=== PATIENT | female | born 1990 | race African-American/Black ===

== ENCOUNTER 2017-10-09 16:56 | Emergency (ER) | payer SELFPAY ==
[2017-10-09 17:02] VITALS: BP 95/74
--- NOTE | 2017-10-09 17:36 | ER Document Report ---
HPI - HPI Pain Level: 3 Notes: Patient is a 27-year-old female no significant past medical history presents the ED complaining of nasal congestion/discharge, dry nonproductive cough 1-1/ 2 weeks. Patient states she still eating and drinking without difficulties. She has not been using any [id number] meds for her symptoms. Patient states that her parents had a similar illness prior to the start hers. She denies any smoking or IV drug use. She denies any drug allergies. Denies any headache, fever, neck pain, sore throat, chest pain, palpitations, syncope, shortness of breath, wheeze, dyspnea, abdominal pain, nausea/vomiting/diarrhea, urinary retention, dysuria, hematuria, or rash. - ROS Notes: REVIEW OF SYSTEMS: CONSTITUTIONAL : Denies fever, chills, or sweats. Denies recent illness. EENT: see hpi CARDIOVASCULAR: Denies chest pain. Denies palpitations or racing or irregular heart beat. Denies ankle edema. RESPIRATORY: see hpi. Denies shortness of breath, difficulty breathing, or wheezing. GASTROINTESTINAL: Denies abdominal pain or distention. Denies nausea, vomiting , or diarrhea. Denies blood in vomitus, stools, or per rectum. Denies black, tarry stools. Denies constipation. GENITOURINARY: Denies difficulty urinating, painful urination, burning, frequency, blood in urine, or discharge. MUSCULOSKELETAL: Denies back or neck pain or stiffness. Denies joint pain or swelling. SKIN: Denies rash, lesions or sores. NEUROLOGICAL: Denies dizziness or lightheadedness. Denies headache. Denies weakness or paralysis or loss of use of either side. Denies problems with gait or speech. Denies sensory loss, numbness, or tingling. Denies seizures. ALL OTHER SYSTEMS REVIEWED AND NEGATIVE. Dictation was performed using [employer] voice recognition software - REPRODUCTIVE Reproductive: DENIES: : Past Medical History - Social History Smoking Status: Never Smoker Family History: Reviewed & Not Pertinent Endocrine Medical History: Denies: Hx Diabetes Mellitus Type 1, Hx Diabetes Mellitus Type 2 - Immunizations Hx Diphtheria, Pertussis, Tetanus Vaccination: Yes Vertical Provider Document - CONSTITUTIONAL Agree With Documented VS: Yes Notes: PHYSICAL EXAMINATION: GENERAL: Well-appearing, well-nourished and in no acute distress. A&Ox4 HEAD: Atraumatic, normocephalic. EYES: Pupils equal round and reactive to light, extraocular movements intact, sclera anicteric, conjunctiva are normal. ENT: EAC clear b/l. TM's intact b/l without erythema, fluid, or perforation. Nares patent and without discharge. oropharynx clear without exudates. No tonsilar hypertrophy or erythema. Moist mucous membranes. No sinus tenderness. Uvula midline, no palatine shift. No tongue protrusion. No airway compromise, drooling, or hoarseness. NECK: Normal range of motion, supple without lymphadenopathy. No rigidity/ meningismus. LUNGS: Breath sounds clear to auscultation bilaterally and equal. No wheezes rales or rhonchi. HEART: Regular rate and rhythm without murmurs, rubs, gallops. ABDOMEN: Soft, nontender, nondistended abdomen. No guarding, no rebound. No masses appreciated. Normal bowel sounds present. No CVA tenderness bilaterally. Musculoskeletal: FROM to passive/active. Strength 5+/5. + tenderness to the rt troch bursa. No erythema, swelling, or ecchymosis. N/V intact distal. Extremities: No cyanosis, clubbing, or edema b/l. Peripheral pulses 2+. Capillary refill less than 3 seconds. NEUROLOGICAL: Cranial nerves grossly intact. Normal speech, normal gait. Normal sensory, motor exams PSYCH: Normal mood, normal affect. SKIN: Warm, Dry, normal turgor, no rashes or lesions noted. - INFECTION CONTROL TRAVEL OUTSIDE OF THE [place] IN LAST 30 DAYS: No - RESPIRATORY O2 Sat by Pulse Oximetry: 98 Course - Re-evaluation Re-evalutation: 10/09/17 17:33 Patient is an afebrile, well-hydrated, 27-year-old female who presents to the ED with acute URI, suspect viral at this time as well as rt troch bursitis and back strain. Vitals are stable. PE is otherwise unremarkable. No labs or imaging warranted based on H&P today. Low suspicion for any ACS, PE, pneumothorax, pericarditis, dissection, respiratory compromise, severe dehydration, sepsis, meningitis, fracture, expanding/ruptured AAA, cauda equina syndrome, epidural mass lesion/abscess, herniated disc causing severe spinal stenosis, or other systemic emergent condition at this time. Patient is aware that her condition can change from initial presentation and she needs to monitor symptoms closely and seek medical attention for any acute changes. Patient declined Toradol. I will send her home with a pocket prescription of Zithromax that she may begin if ongoing worsening symptoms 2-3 days. Recommend conservative measures for symptoms. Recheck with your PCM in 3-5 days. Return to the ED with any worsening/concerning symptoms otherwise as reviewed in discharge. Patient is in agreement. - Vital Signs Vital signs: Temp Pulse Resp BP Pulse Ox 98.8 F 84 14 95/74 L 98 10/09/17 17:02 10/09/17 17:02 10/09/17 17:02 10/09/17 17:02 10/09/17 17:02 Discharge - Discharge Clinical Impression: Acute URI, Trochanteric bursitis, right hip Low back strain Qualifiers: Encounter type: initial encounter Qualified Code(s): S39.012A - Strain of muscle, fascia and tendon of lower back, initial encounter Condition: Stable Disposition: HOME, SELF-CARE Instructions: Ice Packs ([facility]), Low Back Pain ([facility]), Stretching Exercises for the Back ([facility]), Upper Respiratory Illness ([facility]), Azithromycin ([facility]) Additional Instructions: Maintain adequate fluid intake Take meds as directed tylenol/ibuprofen as needed over the counter cold medication as needed for symptoms Humidified air may help with cough Rest, ice as needed, stretches, and exercise F/u: with your PCM in 3-5 days for a recheck Return to the ED with any fever, worsening pain, chest pain, palpitations, syncope, worsening CANDELARIA, neck pain/stiffness, shortness of breath, wheezing, drooling, trouble swallowing/breathing, abdominal pain, n/v/d, rash, or worsening/concerning symptoms otherwise. Prescriptions: Azithromycin [Zithromax 250 mg Tablet] 250 mg PO ASDIR PRN #6 tablet PRN Reason: Forms: Return to Work Referrals: [facility] [Provider Group] - Follow up as needed [facility] [Provider Group] - Follow up as needed
== END 2017-10-09 17:40 | disposition home or self-care (01) ==
LOC: ER 16:56
DX: S39.012A Strain of muscle, fascia and tendon of lower back, initial encounter (principal); J06.9 Acute upper respiratory infection, unspecified; M70.61 Trochanteric bursitis, right hip; R09.81 Nasal congestion; R05 Cough; X58.XXXA Exposure to other specified factors, initial encounter
CPT/HCPCS: 99283

== ENCOUNTER 2017-10-16 07:15 | Emergency (ER) | payer OTHER ==
--- NOTE | 2017-10-16 08:12 | ER Document Report ---
ED General - General Chief Complaint: Back Pain Stated Complaint: BACK PAIN Time Seen by Provider: 10/16/17 07:26 Mode of Arrival: Ambulatory Information source: Patient Notes: 27-year-old female presents with complaints of back pain of one-week duration. Patient notes she was seen here diagnosed with a low back strain and now has generalized back pain. 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 Patient notes the pain has worsened but she has not been taking alleve the way she is supposed to TRAVEL OUTSIDE OF THE [place] IN LAST 30 DAYS: No - HPI Onset: Last week Onset/Duration: Worse Quality of pain: Achy Severity: Mild Pain Level: 1 Associated symptoms: Body/muscle aches Exacerbated by: Movement Relieved by: Denies Similar symptoms previously: Yes Recently seen / treated by doctor: Yes - Related Data Allergies/Adverse Reactions: No Known Allergies Allergy (Verified 10/16/17 07:15) Past Medical History - Social History Smoking Status: Never Smoker Cigarette use (# per day): No Chew tobacco use (# tins/day): No Smoking Education Provided: No Frequency of alcohol use: None Drug Abuse: None Family History: Reviewed & Not Pertinent Patient has suicidal ideation: No Patient has homicidal ideation: No Endocrine Medical History: Denies: Hx Diabetes Mellitus Type 1, Hx Diabetes Mellitus Type 2 Renal/ Medical History: Denies: Hx Peritoneal Dialysis Musculoskeltal Medical History: Reports Hx Arthritis - right hip - Immunizations Hx Diphtheria, Pertussis, Tetanus Vaccination: Yes Review of Systems - Review of Systems Notes: REVIEW OF SYSTEMS: CONSTITUTIONAL : Denies fever, chills, or sweats. Denies recent illness. EENT: Denies eye, ear, throat, or mouth pain or symptoms. Denies nasal or sinus congestion or discharge. Denies throat, tongue, or mouth swelling or difficulty swallowing. CARDIOVASCULAR: Denies chest pain. Denies palpitations or racing or irregular heart beat. Denies ankle edema. RESPIRATORY: Denies cough, cold, or chest congestion. Denies shortness of breath, difficulty breathing, or wheezing. GASTROINTESTINAL: Denies abdominal pain or distention. Denies nausea, vomiting , or diarrhea. Denies blood in vomitus, stools, or per rectum. Denies black, tarry stools. Denies constipation. GENITOURINARY: Denies difficulty urinating, painful urination, burning, frequency, blood in urine, or discharge. FEMALE GENITOURINARY: Denies vaginal bleeding, heavy or abnormal periods, irregular periods. Denies vaginal discharge or odor. MUSCULOSKELETAL: admits to muscle aches SKIN: Denies rash, lesions or sores. HEMATOLOGIC : Denies easy bruising or bleeding. LYMPHATIC: Denies swollen, enlarged glands. NEUROLOGICAL: Denies confusion or altered mental status. Denies passing out or loss of consciousness. Denies dizziness or lightheadedness. Denies headache. Denies weakness or paralysis or loss of use of either side. Denies problems with gait or speech. Denies sensory loss, numbness, or tingling. Denies seizures. PSYCHIATRIC: Denies anxiety or stress. Denies depression, suicidal ideation, or homicidal ideation. ALL OTHER SYSTEMS REVIEWED AND NEGATIVE. PHYSICAL EXAMINATION: GENERAL: Well-appearing, well-nourished and in no acute distress. HEAD: Atraumatic, normocephalic. EYES: Pupils equal round and reactive to light, extraocular movements intact, conjunctiva are normal. ENT: Nares patent, oropharynx clear without exudates. Moist mucous membranes. NECK: Normal range of motion, supple without lymphadenopathy LUNGS: Breath sounds clear to auscultation bilaterally and equal. No wheezes rales or rhonchi. HEART: Regular rate and rhythm without murmurs ABDOMEN: Soft, nontender, nondistended abdomen. No guarding, no rebound. No masses appreciated. Female : deferred Musculoskeletal: Normal range of motion, no pitting or edema. No cyanosis. generalized tenderness on palpation NEUROLOGICAL: Cranial nerves grossly intact. Normal speech, normal gait. Normal sensory, motor exams PSYCH: Normal mood, normal affect. SKIN: Warm, Dry, normal turgor, no rashes or lesions noted. Dictation was performed using [employer] voice recognition software Physical Exam - Vital signs Vitals: Temp Pulse Resp BP Pulse Ox 97.6 F 73 16 111/75 100 10/16/17 07:19 10/16/17 07:19 10/16/17 07:19 10/16/17 07:19 10/16/17 07:19 Course - Re-evaluation Re-evalutation: 10/16/17 17:10 Patient's presentation is consistent with muscle pain secondary to heavy lifting. She has not been bony tenderness she has no neurological deficits she has no cauda equina concerns. Therefore I believe the patient is stable for discharge. Patient will be treated with steroids and muscle relaxant After performing a Medical Screening Examination, I estimate there is LOW risk for EXPANDING OR RUPTURED ABDOMINAL AORTIC ANEURYSM, CAUDA EQUINA SYNDROME, EPIDURAL MASS LESION, or HERNIATED DISK CAUSING SEVERE SPINAL STENOSIS, thus I consider the discharge disposition reasonable. I have reevaluated this patient multiple times and no significant life threatening changes are noted. The patient and I have discussed the diagnosis and risks, and we agree with discharging home and close follow-up. We also discussed returning to the Emergency Department immediately if new or worsening symptoms occur with the understanding that symptoms and presentations can change. We have discussed the symptoms which are most concerning (e.g., saddle anesthesia, urinary or bowel incontinence or retention, changing or worsening pain) that necessitate immediate return. - Vital Signs Vital signs: Temp Pulse Resp BP Pulse Ox 98.2 F 86 18 111/83 99 10/16/17 08:16 10/16/17 08:16 10/16/17 08:16 10/16/17 08:16 10/16/17 08:16 Discharge - Discharge Clinical Impression: Low back strain Qualifiers: Encounter type: subsequent encounter Qualified Code(s): S39.012D - Strain of muscle, fascia and tendon of lower back, subsequent encounter Condition: Stable Disposition: HOME, SELF-CARE Instructions: Low Back Pain ([facility]), Muscle Strain ([facility]) Additional Instructions: Please allow for limited lifting at work no greater than 20 pounds for 2 weeks Prescriptions: Cyclobenzaprine HCl [Flexeril 10 mg Tablet] 10 mg PO TIDP PRN #15 tab PRN Reason: Prednisone [Deltasone 20 mg Tablet] 3 tab PO DAILY 5 Days tablet Forms: Return to Work
[2017-10-16 08:40] VITALS: BP 111/83
== END 2017-10-16 08:20 | disposition home or self-care (01) ==
LOC: ER 07:15
DX: S39.012D Strain of muscle, fascia and tendon of lower back, subsequent encounter (principal); M54.9 Dorsalgia, unspecified; X58.XXXD Exposure to other specified factors, subsequent encounter
CPT/HCPCS: 99283

== ENCOUNTER 2017-12-18 06:20 | Emergency (ER) | payer OTHER ==
[2017-12-18 07:12] LABS: A TYPE INFLUENZA AG NEGATIVE (NEGATIVE); B INFLUENZA AG NEGATIVE (NEGATIVE)
--- NOTE | 2017-12-18 07:18 | ER Document Report ---
ED Flu Like - General Chief Complaint: Flu Symptoms Stated Complaint: FLU LIKE SYMPTOMS Time Seen by Provider: 12/18/17 06:39 Notes: Patient complains of a viral-like illness for the last week. States that she started feeling sick with fever on Thursday of last week. Continues to have fever on and off. Irritation of both eyes, ear pain, sore throat, cough, shortness of breath. 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 Is scheduled to work for the next several days. TRAVEL OUTSIDE OF THE [place] IN LAST 30 DAYS: No - HPI Onset: Last week Timing/Duration: Constant Severity: Moderate Pain Level: 2 Shortness of breath: Moderate Associated symptoms: Productive cough, Earache, Fever, Headache, Hoarseness, Shortness of breath, Sore throat - Related Data Allergies/Adverse Reactions: No Known Allergies Allergy (Verified 10/16/17 07:15) Past Medical History - General Information source: Patient - Social History Smoking Status: Never Smoker Chew tobacco use (# tins/day): No Frequency of alcohol use: None Drug Abuse: None Lives with: Family Family History: Reviewed & Not Pertinent Patient has suicidal ideation: No Patient has homicidal ideation: No Endocrine Medical History: Denies: Hx Diabetes Mellitus Type 1, Hx Diabetes Mellitus Type 2 Renal/ Medical History: Denies: Hx Peritoneal Dialysis Musculoskeltal Medical History: Reports Hx Arthritis - right hip - Immunizations Hx Diphtheria, Pertussis, Tetanus Vaccination: Yes Review of Systems - Review of Systems Constitutional: Chills, Fever, Malaise. denies: Diaphoresis EENT: Eye discharge, Tearing, Ear pain, Nose congestion, Nose discharge, Throat pain. denies: Throat swelling, Mouth pain Cardiovascular: denies: Chest pain, Palpitations, Heart racing Respiratory: Cough, Short of breath, Wheezing Gastrointestinal: denies: Abdominal pain, Diarrhea, Nausea Genitourinary: denies: Burning, Dysuria, Discharge Musculoskeletal: Muscle pain. denies: Back pain, Gout, Joint pain Skin: denies: Lesions, Lumps, Rash Hematologic/Lymphatic: denies: Anemia, Blood clots, Easy bleeding, Easy bruising Neurological/Psychological: denies: Dementia, Weakness, Numbness Physical Exam - Vital signs Vitals: Temp Pulse Resp BP Pulse Ox 98.2 F 83 18 116/82 98 12/18/17 06:24 12/18/17 06:24 12/18/17 06:24 12/18/17 06:24 12/18/17 06:24 Interpretation: Normal - General General appearance: Appears well, Alert - HEENT Head: Normocephalic, Atraumatic Eyes: Normal Conjunctiva: Other - Mildly injected in the left eye. No purulent discharge noted. Pupils: PERRL Tympanic membrane: Normal Pharynx: Normal Neck: Normal - Respiratory Respiratory status: No respiratory distress Chest status: Nontender Breath sounds: Normal Chest palpation: Normal - Cardiovascular Rhythm: Regular Heart sounds: Normal auscultation Murmur: No - Abdominal Inspection: Normal Distension: No distension Bowel sounds: Normal Tenderness: Nontender Organomegaly: No organomegaly - Back Back: Normal, Nontender - Extremities General upper extremity: Normal inspection, Nontender, Normal color, Normal ROM , Normal temperature General lower extremity: Normal inspection, Nontender, Normal color, Normal ROM , Normal temperature, Normal weight bearing. No: Roselia's sign - Neurological Neuro grossly intact: Yes Cognition: Normal Orientation: AAOx4 [place] Coma Scale Eye Opening: Spontaneous [place] Coma Scale Verbal: Oriented [place] Coma Scale Motor: Obeys Commands [place] Coma Scale Total: 15 Speech: Normal Motor strength normal: LUE, RUE, LLE, RLE Sensory: Normal - Psychological Associated symptoms: Normal affect, Normal mood - Skin Skin Temperature: Warm Skin Moisture: Dry Skin Color: Normal Course - Re-evaluation Re-evalutation: 12/18/17 07:31 Patient has been having viral-like symptoms for approximately 1 week. Influenza testing was negative. I have advised her to continue with symptomatic care. Will prescribe her an inhaler at this time which may help with some of her breathing issues. Will DC at this time. Strict instructions were given that she should return if anything gets worse. - Vital Signs Vital signs: Temp Pulse Resp BP Pulse Ox 98.2 F 83 18 116/82 98 12/18/17 06:24 12/18/17 06:24 12/18/17 06:24 12/18/17 06:24 12/18/17 06:24 Discharge - Discharge Clinical Impression: Viral syndrome Disposition: HOME, SELF-CARE Instructions: Acetaminophen, Fever ([facility]), Viral Syndrome ([facility]) Prescriptions: Albuterol Sulfate [Proair HFA Inhalation Aerosol 8.5 gm MDI] 2 puff IH Q4H PRN # 1 mdi PRN Reason: Forms: Return to Work
[2017-12-18 08:05] VITALS: BP 110/81
== END 2017-12-18 08:05 | disposition home or self-care (01) ==
LOC: ER 06:20
DX: B34.9 Viral infection, unspecified (principal); R50.9 Fever, unspecified; H92.09 Otalgia, unspecified ear; J02.9 Acute pharyngitis, unspecified; R05 Cough; R06.02 Shortness of breath; R51 Headache; R49.0 Dysphonia
CPT/HCPCS: 87804; 99283

== ENCOUNTER 2017-12-25 06:08 | Emergency (ER) | payer SELFPAY ==
[2017-12-25] MEDS ORDERED: DEXAMETHASONE SOD PHOS INJ 10 MG/1 ML VIAL IM ONE (07:09)
--- NOTE | 2017-12-25 08:06 | ER Document Report ---
ED General - General Chief Complaint: Ear Pain Stated Complaint: SORE THROAT Time Seen by Provider: 12/25/17 06:42 Mode of Arrival: Ambulatory Information source: Patient TRAVEL OUTSIDE OF THE [place] IN LAST 30 DAYS: No - HPI Patient complains to provider of: sore throat Onset: Last week Onset/Duration: Gradual, Constant Associated symptoms: Earache - b/l Exacerbated by: Denies Relieved by: Denies Similar symptoms previously: Yes Recently seen / treated by doctor: Yes - last week dxed with flu Notes: She states she was diagnosed with the flu last week. She did not have a test but clinically she was diagnosed with it. She states right now her ears hurt and she has a sore throat. She is tolerating p.o. She was supposed to go to work today but just did not feel well enough. No nausea vomiting diarrhea fever shortness of breath headache syncope or other complaints - Related Data Allergies/Adverse Reactions: No Known Allergies Allergy (Verified 10/16/17 07:15) Past Medical History - General Information source: Patient - Social History Smoking Status: Unknown if Ever Smoked Chew tobacco use (# tins/day): No Frequency of alcohol use: None Drug Abuse: None Lives with: Family Family History: Reviewed & Not Pertinent Patient has suicidal ideation: No Patient has homicidal ideation: No - Past Medical History Cardiac Medical History: Reports: None Pulmonary Medical History: Reports: None EENT Medical History: Reports: None Neurological Medical History: Reports: None Endocrine Medical History: Reports: None. Denies: Hx Diabetes Mellitus Type 1, Hx Diabetes Mellitus Type 2 Renal/ Medical History: Reports: None. Denies: Hx Peritoneal Dialysis Malignancy Medical History: Reports: None GI Medical History: Reports: None Musculoskeltal Medical History: Reports Hx Arthritis - right hip Psychiatric Medical History: Reports: None Past Surgical History: Reports: None - Immunizations Hx Diphtheria, Pertussis, Tetanus Vaccination: Yes Review of Systems - Review of Systems Constitutional: Recent illness EENT: Ear pain, Throat pain, Difficulty swallowing. denies: Ear discharge Cardiovascular: No symptoms reported Respiratory: No symptoms reported Gastrointestinal: No symptoms reported Genitourinary: No symptoms reported Female Genitourinary: No symptoms reported Musculoskeletal: No symptoms reported Skin: No symptoms reported Hematologic/Lymphatic: No symptoms reported Neurological/Psychological: No symptoms reported Physical Exam - Vital signs Vitals: Temp Pulse Resp BP Pulse Ox 97.7 F 72 16 124/89 H 99 18 06:18 12/25/17 06:18 12/25/17 06:18 12/25/17 06:18 12/25/17 06:18 Interpretation: Normal - Notes Notes: PHYSICAL EXAMINATION: GENERAL: Well-appearing, well-nourished and in no acute distress. HEAD: Atraumatic, normocephalic. EYES: Pupils equal round and reactive to light, extraocular movements intact, conjunctiva are normal. ENT: Nares patent, oropharynx clear without exudates. Moist mucous membranes. Fluid behind b/l TMs-structures WNL. No bulging of TMs. Uvula mildly edematous- midline. No tonsillar enlargement or exudate. pt. tolerating saliva. NECK: Normal range of motion, supple without lymphadenopathy LUNGS: Breath sounds clear to auscultation bilaterally and equal. No wheezes rales or rhonchi. HEART: Regular rate and rhythm without murmurs ABDOMEN: Soft, nontender, nondistended abdomen. No guarding, no rebound. No masses appreciated. Female : deferred Musculoskeletal: Normal range of motion, no pitting or edema. No cyanosis. NEUROLOGICAL: Cranial nerves grossly intact. Normal speech, normal gait. Normal sensory, motor exams PSYCH: Normal mood, normal affect. SKIN: Warm, Dry, normal turgor, no rashes or lesions noted. Course - Re-evaluation Re-evalutation: 12/25/17 08:16 Lacey with patient that at this point I did not feel antibiotics were needed or would help the patient. It appears she has a viral pharyngitis. I did tell the patient to give her a work note for a few days to rest at home. Patient verbalized understanding. She is to return to the emergency department if she has fevers, intractable vomiting, worsening symptoms or any other concerns. Patient verbalized understanding she was discharged home in stable condition. - Vital Signs Vital signs: Temp Pulse Resp BP Pulse Ox 97.7 F 72 16 124/89 H 99 18 06:18 12/25/17 06:18 12/25/17 06:18 12/25/17 06:18 12/25/17 06:18 Discharge - Discharge Clinical Impression: Viral pharyngitis Condition: Stable Disposition: HOME, SELF-CARE Instructions: Sore Throat ([facility]) Additional Instructions: Follow up with your physician tomorrow for further care or return to the ED IMMEDIATELY if symptoms worsen or new concerns occur. If you cannot afford to follow up with your primary care physician a list of low cost clinics have been provided at the end of your discharge papers as well. Forms: Return to Work
[2017-12-25 08:13] VITALS: BP 111/79
== END 2017-12-25 08:13 | disposition home or self-care (01) ==
LOC: ER 06:08
DX: J02.9 Acute pharyngitis, unspecified (principal); B97.89 Other viral agents as the cause of diseases classified elsewhere; H92.03 Otalgia, bilateral
CPT/HCPCS: 99282; 96372; J1100

== ENCOUNTER 2018-07-07 08:14 | Emergency (ER) | payer BC ==
[2018-07-07] MEDS ORDERED: NORMAL SALINE 1000 ML 1,000 ML IV ONE (09:19)
[2018-07-07] MEDS ORDERED: METOCLOPRAMIDE HCL INJ/PF 10 MG/2 ML SDV IV ONE (09:20)
[2018-07-07] MEDS ORDERED: ACETAMINOPHEN 325 MG TABLET PO ONE (09:20)
--- NOTE | 2018-07-07 09:22 | ER Document Report ---
ED Medical Screen (RME) - General Chief Complaint: Headache >24 hrs old Stated Complaint: HEADACHE Time Seen by Provider: 07/07/18 09:04 Mode of Arrival: Ambulatory Information source: Patient Notes: Patient complaining of headache for the past 1 month. She denies any history of migraine headaches. Patient also denies any history of head injury or trauma. I have greeted and performed a rapid initial assessment of this patient. A comprehensive ED assessment and evaluation of the patient, analysis of test results and completion of the medical decision making process will be conducted by additional ED providers. TRAVEL OUTSIDE OF THE [place] IN LAST 30 DAYS: No - Related Data Allergies/Adverse Reactions: No Known Allergies Allergy (Verified 10/16/17 07:15) Past Medical History - Social History Chew tobacco use (# tins/day): No Frequency of alcohol use: None Drug Abuse: None Endocrine Medical History: Denies: Hx Diabetes Mellitus Type 1, Hx Diabetes Mellitus Type 2 Renal/ Medical History: Denies: Hx Peritoneal Dialysis Musculoskeltal Medical History: Reports Hx Arthritis - right hip - Immunizations Hx Diphtheria, Pertussis, Tetanus Vaccination: Yes Physical Exam - Vital signs Vitals: Temp Pulse Resp BP Pulse Ox 97.6 F 74 16 119/75 98 07/07/18 08:23 07/07/18 08:23 07/07/18 08:23 07/07/18 08:23 07/07/18 08:23 Course - Vital Signs Vital signs: Temp Pulse Resp BP Pulse Ox 97.6 F 74 16 119/75 98 07/07/18 08:23 07/07/18 08:23 07/07/18 08:23 07/07/18 08:23 07/07/18 08:23
[2018-07-07 09:50] LABS: ABSOLUTE BASOPHILS # (AUTO) 0.1 10^3/uL (0.0-0.2); ABSOLUTE EOSINOPHILS # (AUTO) 0.1 10^3/uL (0.0-0.6); ABSOLUTE LYMPHOCYTES (AUTO) 2.6 10^3/uL (0.5-4.7); ABSOLUTE MONOCYTES (AUTO) 0.5 10^3/uL (0.1-1.4); ABSOLUTE NEUT (AUTO) 5.9 10^3/uL (1.7-8.2); BASOPHILS % (AUTO) 0.7 % (0-2); EOSINOPHILS % (AUTO) 0.9 % (0-6); HEMATOCRIT 44.4 % (36.0-47.0); HEMOGLOBIN 14.5 g/dL (12.0-15.5); LYMPHOCYTES % (AUTO) 28.6 % (13-45); MEAN CORPUSCULAR HEMOGLOBIN 27.1 pg (27.0-33.4); MEAN CORPUSCULAR HGB CONC 32.7 g/dL (32.0-36.0); MEAN CORPUSCULAR VOLUME 83 fl (80-97); PLATELET COUNT 312 10^3/uL (150-450); RED BLOOD COUNT 5.36 10^6/uL (3.72-5.28); RED CELL DISTRIBUTION WIDTH 14.8 % (11.5-14.0); SEGMENTED NEUTROPHILS % (AUTO) 63.8 % (42-78); TOTAL CELLS COUNTED % (AUTO) 100 %; WHITE BLOOD COUNT 9.2 10^3/uL (4.0-10.5)
[2018-07-07 09:53] LABS: APPEARANCE,URINE SLIGHTLY-CLOUDY; BILIRUBIN,URINE NEGATIVE (NEGATIVE); COLOR,URINE YELLOW; GLUCOSE, URINE NEGATIVE (NEGATIVE); KETONES,URINE NEGATIVE (NEGATIVE); LEUKOCYTE ESTERASE,URINE MODERATE (NEGATIVE); NITRITE,URINE NEGATIVE (NEGATIVE); PROTEIN,URINE NEGATIVE (NEGATIVE); PROTHROMBIN TIME 12.6 SEC (11.4-15.4); URINE SPECIFIC GRAVITY 1.031
[2018-07-07 09:54] LABS: PARTIAL THROMBOPLASTIN TIME 33.5 SEC (23.5-35.8)
[2018-07-07 10:08] LABS: ANION GAP 7 (5-19); BLOOD UREA NITROGEN 14 mg/dL (7-20); CALCIUM 9.5 mg/dL (8.4-10.2); CARBON DIOXIDE 28 mmol/L (22-30); CHLORIDE 106 mmol/L (98-107); GLUCOSE 87 mg/dL (75-110); POTASSIUM 4.4 mmol/L (3.6-5.0); SODIUM 140.9 mmol/L (137-145)
--- NOTE | 2018-07-07 11:49 | ER Document Report ---
ED Headache - General Chief Complaint: Headache >24 hrs old Stated Complaint: HEADACHE Time Seen by Provider: 07/07/18 09:04 Mode of Arrival: Ambulatory Notes: 28-year-old female to the emergency department for evaluation of headache for which she has had for 2 months. Located in the bilateral frontal areas. Intermittent blurred vision. No particular weakness. No vomiting. No other issues. TRAVEL OUTSIDE OF THE [place] IN LAST 30 DAYS: No - HPI Patient complains to provider of: Headache, "Migraine" Onset was: Cannot pinpoint Timing: Still present Quality of pain: Achy - Related Data Allergies/Adverse Reactions: No Known Allergies Allergy (Verified 10/16/17 07:15) Past Medical History - General Information source: Patient - Social History Smoking Status: Never Smoker Chew tobacco use (# tins/day): No Frequency of alcohol use: None Drug Abuse: None Lives with: Family Family History: Reviewed & Not Pertinent Patient has suicidal ideation: No Patient has homicidal ideation: No Endocrine Medical History: Denies: Hx Diabetes Mellitus Type 1, Hx Diabetes Mellitus Type 2 Renal/ Medical History: Denies: Hx Peritoneal Dialysis Musculoskeletal Medical History: Reports Hx Arthritis - right hip - Immunizations Hx Diphtheria, Pertussis, Tetanus Vaccination: Yes Review of Systems - Review of Systems Notes: Constitutional: denies: Chills, Diaphoresis, Fever, Malaise, Weakness EENT: denies: Eye discharge, Blurred vision, Tearing, Double vision, Nose congestion, Nose discharge, Throat swelling, Mouth pain Cardiovascular: denies: Palpitations, Heart racing, Orthopnea, Dyspnea, Chest pain Respiratory: denies: Cough, Hurts to breathe, Wheezing, Shortness of breath Gastrointestinal: denies: Abdominal pain, Diarrhea, Nausea, Vomiting, Black stools, bright red blood in stool Genitourinary: denies: Burning, Dysuria, Discharge, Frequency, Flank pain, Hematuria Musculoskeletal: denies: Joint pain, Joint swelling, Muscle pain, Muscle stiffness, back pain Hematologic/Lymphatic: denies: Anemia, Easy bleeding, Easy bruising, Blood clots Neurological/Psychological: denies: Confusion, Dementia, Depression, Loss of consciousness. Does complain of a headache Skin: No lesions, no masses, no skin breakdown, no abscesses Physical Exam - Vital signs Vitals: Temp Pulse Resp BP Pulse Ox 97.6 F 74 16 119/75 98 07/07/18 08:23 07/07/18 08:23 07/07/18 08:23 07/07/18 08:23 07/07/18 08:23 Interpretation: Normal - General General appearance: Appears well, Alert - HEENT Head: Normocephalic, Atraumatic Eyes: Normal Pupils: PERRL - Respiratory Respiratory status: No respiratory distress Chest status: Nontender Breath sounds: Normal Chest palpation: Normal - Cardiovascular Rhythm: Regular Heart sounds: Normal auscultation Murmur: No - Abdominal Inspection: Normal Distension: No distension Bowel sounds: Normal Tenderness: Nontender Organomegaly: No organomegaly - Back Back: Normal, Nontender - Extremities General upper extremity: Normal inspection, Nontender, Normal color, Normal ROM , Normal temperature General lower extremity: Normal inspection, Nontender, Normal color, Normal ROM , Normal temperature, Normal weight bearing. 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 Sensory: Normal - Psychological Associated symptoms: Normal affect, Normal mood - Skin Skin Temperature: Warm Skin Moisture: Dry Skin Color: Normal Course - Re-evaluation Re-evalutation: 07/07/18 11:54 Laboratory 07/07/18 07/07/18 07/07/18 09:34 09:34 09:34 WBC 9.2 RBC 5.36 H Hgb 14.5 Hct 44.4 MCV 83 MCH 27.1 MCHC 32.7 RDW 14.8 H Plt Count 312 Seg Neutrophils % 63.8 Lymphocytes % 28.6 Monocytes % 6.0 Eosinophils % 0.9 Basophils % 0.7 Absolute Neutrophils 5.9 Absolute Lymphocytes 2.6 Absolute Monocytes 0.5 Absolute Eosinophils 0.1 Absolute Basophils 0.1 PT 12.6 INR 0.90 APTT 33.5 Sodium 140.9 Potassium 4.4 Chloride 106 Carbon Dioxide 28 Anion Gap 7 BUN 14 Creatinine 0.70 Est GFR ( Amer) > 60 Est GFR (Non-Af Amer) > 60 Glucose 87 Calcium 9.5 Urine Color Urine Appearance Urine pH Ur Specific [place] Urine Protein Urine Glucose (UA) Urine Ketones Urine Blood Urine Nitrite Urine Bilirubin Urine Urobilinogen Ur Leukocyte Esterase Urine WBC (Auto) Urine RBC (Auto) Urine Bacteria (Auto) Squamous Epi Cells Auto Urine Mucus (Auto) Urine Ascorbic Acid Urine HCG, Qual 07/07/18 09:34 WBC RBC Hgb Hct MCV MCH MCHC RDW Plt Count Seg Neutrophils % Lymphocytes % Monocytes % Eosinophils % Basophils % Absolute Neutrophils Absolute Lymphocytes Absolute Monocytes Absolute Eosinophils Absolute Basophils PT INR APTT Sodium Potassium Chloride Carbon Dioxide Anion Gap BUN Creatinine Est GFR ( Amer) Est GFR (Non-Af Amer) Glucose Calcium Urine Color YELLOW Urine Appearance SLIGHTLY-CLOUDY Urine pH 6.0 Ur Specific [place] 1.031 Urine Protein NEGATIVE Urine Glucose (UA) NEGATIVE Urine Ketones NEGATIVE Urine Blood NEGATIVE Urine Nitrite NEGATIVE Urine Bilirubin NEGATIVE Urine Urobilinogen 4.0 H Ur Leukocyte Esterase MODERATE H Urine WBC (Auto) 12 Urine RBC (Auto) 2 Urine Bacteria (Auto) TRACE Squamous Epi Cells Auto 10 Urine Mucus (Auto) MANY Urine Ascorbic Acid NEGATIVE Urine HCG, Qual NEGATIVE 07/07/18 12:[address] 07/07/18 11:47 IMPRESSION: NORMAL BRAIN CT WITHOUT CONTRAST. EVIDENCE OF ACUTE STROKE: NO. 07/07/18 12:55 There is no evidence of anything acute at this time. We will give her information with regards to headaches and discharge shortly. - Vital Signs Vital signs: Temp Pulse Resp BP Pulse Ox 97.6 F 74 16 119/75 98 07/07/18 08:23 07/07/18 08:23 07/07/18 08:23 07/07/18 08:23 07/07/18 08:23 - Laboratory Result Diagrams: 07/07/18 09:34 07/07/18 09:34 Laboratory results interpreted by me: 07/07/18 07/07/18 09:34 09:34 RBC 5.36 H RDW 14.8 H Urine Urobilinogen 4.0 H Ur Leukocyte Esterase MODERATE H Discharge - Discharge Clinical Impression: Stress headaches Condition: Good Disposition: HOME, SELF-CARE Instructions: Tension Headache ([facility]) Prescriptions: Baclofen [Baclofen 10 mg Tablet] 10 mg PO QHS PRN 15 Days #15 tablet PRN Reason: Muscle Spasms Ibuprofen [Motrin 800 mg Tablet] 800 mg PO Q8H PRN 7 Days #21 tab PRN Reason: For Pain Scale 3-4 Referrals: SANTOS SALAS MD [NO LOCAL MD] - Follow up as needed
--- NOTE | 2018-07-07 12:23 | RADIOLOGY REPORT (SQ) ---
EXAM DESCRIPTION: CT HEAD WITHOUT COMPLETED DATE/TIME: 07/07/2018 12:12 pm REASON FOR STUDY: headache, dizziness, blurred vision COMPARISON: None. TECHNIQUE: Axial images acquired through the brain without intravenous contrast. Images reviewed wi th bone, brain and subdural windows. Additional sagittal and coronal reconstructions were generated. Images stored on PACS. All CT scanners at this facility use dose modulation, iterative reconstruction, and/or weight based d osing when appropriate to reduce radiation dose to as low as reasonably achievable (ALARA). [facility]: Dose Right [facility]: CareDose [facility]: Dose Right [facility]: Teradose 4D [facility]: Smart zoidu RADIATION DOSE: CT Rad equipment meets quality standard of care and radiation dose reduction techniq ues were employed. CTDIvol: 53.2 mGy. DLP: 964 mGy-cm. mGy. LIMITATIONS: None. FINDINGS: VENTRICLES: Normal size and contour. CEREBRUM: No masses. No hemorrhage. No midline shift. No evidence for acute infarction. Normal gra y/white matter differentiation. No areas of low density in the white matter. CEREBELLUM: No masses. No hemorrhage. No alteration of density. No evidence for acute infarction. EXTRAAXIAL SPACES: No fluid collections. No masses. ORBITS AND GLOBE: No intra- or extraconal masses. Normal contour of globe without masses. CALVARIUM: No fracture. PARANASAL SINUSES: No fluid or mucosal thickening. SOFT TISSUES: No mass or hematoma. OTHER: No other significant finding. IMPRESSION: NORMAL BRAIN CT WITHOUT CONTRAST. EVIDENCE OF ACUTE STROKE: NO. COMMENT: Quality ID # [id number]: Final reports with documentation of one or more dose reduction techniques (e.g., Automated exposure control, adjustment of the mA and/or kV according to patient size, use of iterative reconstruction technique) TECHNICAL DOCUMENTATION: JOB ID: [id number] [employer]- All Rights Reserved Reading location - IP/workstation name: [email or web address]
[2018-07-07] MEDS ORDERED: KETOROLAC TROMETHAMINE INJ/PF 30 MG/1 ML SDV IV ONE (12:39)
[2018-07-07 13:39] VITALS: BP 134/72
== END 2018-07-07 13:38 | disposition home or self-care (01) ==
LOC: ER 08:14
DX: G44.209 Tension-type headache, unspecified, not intractable (principal)
CPT/HCPCS: 99284; 96374; 36415; 87086; 85025; 85610; 85730; 81025; 80048; 81001; 70450; J1885; 96361

== ENCOUNTER 2018-07-12 06:23 | Emergency (ER) | payer BC ==
[2018-07-12] MEDS ORDERED: METOCLOPRAMIDE HCL INJ/PF 10 MG/2 ML SDV IV ONE (08:04)
[2018-07-12] MEDS ORDERED: DIPHENHYDRAMINE HCL 50 MG/ML VIAL IV ONE (08:04)
[2018-07-12] MEDS ORDERED: KETOROLAC TROMETHAMINE INJ/PF 30 MG/1 ML SDV IV ONE (08:05)
[2018-07-12] MEDS ORDERED: DIPHENHYDRAMINE HCL 50 MG CAPSULE PO ONE (09:20)
--- NOTE | 2018-07-12 09:43 | ER Document Report ---
ED General - General Chief Complaint: Headache <24 hrs old Stated Complaint: HEADACHE Time Seen by Provider: 07/12/18 07:48 TRAVEL OUTSIDE OF THE [place] IN LAST 30 DAYS: No - HPI Patient complains to provider of: 28-year-old female with headache Onset: Other - 28-year-old female presents with a headache she has been having intermittently over the last 2 weeks for which she was evaluated 1 week prior and prescribed a muscle relaxer as well as nonsteroidals she is continued to have occasional headaches since that time with only modest improvement she was told they were related stress but she does not believe this, she has had intermittent headaches in the past, this is not the worst headache of her life. She denies any fevers or chills, neck stiffness, focal numbness or weakness or other recent injuries to the head. - Related Data Allergies/Adverse Reactions: No Known Allergies Allergy (Verified 07/12/18 06:25) Past Medical History - General Information source: Patient - Social History Smoking Status: Never Smoker Chew tobacco use (# tins/day): No Frequency of alcohol use: None Drug Abuse: None Family History: Reviewed & Not Pertinent Patient has suicidal ideation: No Patient has homicidal ideation: No Endocrine Medical History: Denies: Hx Diabetes Mellitus Type 1, Hx Diabetes Mellitus Type 2 Renal/ Medical History: Denies: Hx Peritoneal Dialysis Musculoskeletal Medical History: Reports Hx Arthritis - right hip - Immunizations Hx Diphtheria, Pertussis, Tetanus Vaccination: Yes Review of Systems - Review of Systems -: Yes All other systems reviewed and negative Physical Exam - Vital signs Vitals: Temp Pulse Resp BP Pulse Ox 97.6 F 74 14 105/74 100 07/12/18 06:28 07/12/18 06:28 07/12/18 06:28 07/12/18 06:28 07/12/18 06:28 - General General appearance: Appears well In distress: None - HEENT Head: Normocephalic Eyes: Normal Conjunctiva: Normal Cornea: Normal Extraocular movements intact: No - Respiratory Respiratory status: No respiratory distress Chest status: Nontender Breath sounds: Normal Chest palpation: Normal - Cardiovascular Rhythm: Regular Heart sounds: Normal auscultation Murmur: No - Abdominal Inspection: Normal Distension: No distension Tenderness: Nontender - Back Back: Normal - Extremities General upper extremity: Normal inspection, Nontender, Normal ROM, Normal strength General lower extremity: Normal inspection, Nontender, Normal ROM, Normal strength - Neurological Neuro grossly intact: Yes Cognition: Normal Orientation: AAOx4 [place] Coma Scale Eye Opening: Spontaneous [place] Coma Scale Verbal: Oriented [place] Coma Scale Motor: Obeys Commands N[place] Coma Scale Total: 15 Speech: Normal Cranial nerves: Normal Cerebellar coordination: Normal Motor strength normal: LUE, RUE, LLE, RLE Additional motor exam normals: Equal rn maternity - Psychological Associated symptoms: Normal affect Course - Re-evaluation Re-evalutation: 07/13/18 17:23 20-year-old female with nonfocal neurologic examination he presents with persistent headache. We will plan for the administration of migraine cocktail as she does not have any obvious symptoms to suggest a more serious underlying cause of her headache at this time. Following a menstruation migraine cocktail patient's headache is essentially resolved at this time. She is neurologically intact and ambulatory. Do not believe this represents meningitis though I did offer this patient a lumbar puncture for further investigation of potential subarachnoid bleed as well as meningitis she declined. We will plan for this patient undergo discharge with return precautions and encouraged follow-up. She is in agreement at this time with this plan. - Vital Signs Vital signs: Temp Pulse Resp BP Pulse Ox 98.2 F 76 16 110/69 99 07/12/18 11:07 07/12/18 11:07 07/12/18 11:07 07/12/18 11:07 07/12/18 11:07 Discharge - Discharge Clinical Impression: Headache Qualifiers: Headache type: unspecified Headache chronicity pattern: unspecified pattern Intractability: not intractable Qualified Code(s): R51 - Headache Condition: Good Disposition: HOME, SELF-CARE Instructions: Headache ([facility]) Prescriptions: Butalb/Acetaminophen/Caffeine [Fioricet (50-325-40 mg) Tablet] 1 tab PO Q4HP PRN 3 Days #12 tab PRN Reason: Forms: Return to Work
[2018-07-12 11:08] VITALS: BP 110/69
== END 2018-07-12 11:24 | disposition home or self-care (01) ==
LOC: ER 06:23
DX: R51 Headache (principal)
CPT/HCPCS: 99284; 96374; 96375; 81025; J1885; J2765

== ENCOUNTER 2018-10-28 19:39 | Emergency (ER) | payer OTHER, BC ==
--- NOTE | 2018-10-28 20:10 | RADIOLOGY REPORT (SQ) ---
EXAM DESCRIPTION: SHOULDER LEFT 2 OR MORE VIEWS COMPLETED DATE/TIME: 10/28/2018 8:01 pm REASON FOR STUDY: pain COMPARISON: None. NUMBER OF VIEWS: Three views. TECHNIQUE: Internal rotation, external rotation, and Y view images acquired of the left shoulder. LIMITATIONS: None. FINDINGS: MINERALIZATION: Normal. BONES: No acute fracture or dislocation. No worrisome bone lesions. JOINTS: No dislocation. VISUALIZED LUNGS AND RIBS: No pneumothorax. No rib fracture. SOFT TISSUES: No radiopaque foreign body. OTHER: No other significant finding. IMPRESSION: NO RADIOGRAPHIC EVIDENCE OF ACUTE INJURY. TECHNICAL DOCUMENTATION: JOB ID: [id number] [place]-72 2010 [employer]- All Rights Reserved Reading location - IP/workstation name: [email or web address]
--- NOTE | 2018-10-28 23:02 | ER Document Report ---
ED Extremity Problem, Upper - General Chief Complaint: Shoulder Injury Stated Complaint: LEFT SHOULDER PAIN Time Seen by Provider: 10/28/18 22:10 Notes: 28-year-old female presents to the emergency department after sustaining a left shoulder injury at work last Thursday. She works at a [employer] and was lifting patients and lift one patient and felt some pain, lifted a second patient felt some more pain, limp to the third patient felt excruciating pain. She has a previous left shoulder injury about a year ago that was similar in nature. She denies fevers or any illnesses, and she took ibuprofen with no relief but she only took it once. She says it hurts with all movement. No other symptoms. TRAVEL OUTSIDE OF THE [place] IN LAST 30 DAYS: No - Related Data Allergies/Adverse Reactions: No Known Allergies Allergy (Verified 07/12/18 06:25) Past Medical History - Social History Smoking Status: Never Smoker Chew tobacco use (# tins/day): No Drug Abuse: None Family History: Reviewed & Not Pertinent Patient has suicidal ideation: No Patient has homicidal ideation: No Endocrine Medical History: Denies: Hx Diabetes Mellitus Type 1, Hx Diabetes Mellitus Type 2 Renal/ Medical History: Denies: Hx Peritoneal Dialysis Musculoskeletal Medical History: Reports Hx Arthritis - right hip - Immunizations Hx Diphtheria, Pertussis, Tetanus Vaccination: Yes Review of Systems - Review of Systems Constitutional: See HPI EENT: No symptoms reported Cardiovascular: No symptoms reported Respiratory: No symptoms reported Gastrointestinal: No symptoms reported Genitourinary: No symptoms reported Female Genitourinary: No symptoms reported Musculoskeletal: See HPI Skin: No symptoms reported Hematologic/Lymphatic: No symptoms reported Neurological/Psychological: No symptoms reported Physical Exam - Vital signs Vitals: Temp Pulse Resp BP Pulse Ox 98.7 F 76 18 119/80 99 10/28/18 19:49 10/28/18 19:49 10/28/18 19:49 10/28/18 19:49 10/28/18 19:49 - Notes Notes: Reviewed vital signs and nursing note as charted by RN. CONSTITUTIONAL: Well-appearing, well-nourished, acting appropriately for age HEAD: Normocephalic, atraumatic, no swelling EYES: PERRL, Conjunctivae clear, no drainage, EOMI, no scleral icterus ENT: External ears without lesions, External auditory caairway patent, mucous membranes pink and moist NECK: Supple, no masses CARD: Regular rate and rhythm, no murmurs, no rubs, no gallops, capillary refill < 2 seconds, symmetric pulses RESP: The lungs are clear to auscultation bilaterally, no wheezing, no rales, no rhonchi. Respiratory rate and effort are normal, normal chest excursion. No respiratory distress, no retractions, no stridor, no nasal flaring, no accessory muscle use. EXT: Limited range of motion left upper extremity. With active range of motion patient is able to flex shoulder to approximately 90 degrees and abduct shoulder to 90 degrees. Passive range of motion I can flex shoulder to approximately 120 degrees and abduct shoulder to 120 degrees. Tenderness to palpation posterior aspect of deltoid. Patient with pain in all movement, no effusions, no edema SKIN: Normal color for age and race, warm, dry, good turgor, no acute lesions noted NEURO: No facial asymmetry, moves all extremities equally, motor and sensory function intact Course - Re-evaluation Re-evalutation: 10/28/18 23:00 28-year-old female with left shoulder injury sustained last Thursday while at work. 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 X-ray performed and negative for any fracture dislocation. Therefore, injury most likely soft tissue as there is point tenderness at maximum posterior deltoid of left shoulder. No concern for septic arthritis as there is no infectious symptoms like fever and patient is able to move shoulder. Shoulder is also not warm to the touch. At this time plan is referral to orthopedics and conservative therapy. - Vital Signs Vital signs: Temp Pulse Resp BP Pulse Ox 98.7 F 76 18 119/80 99 10/28/18 19:49 10/28/18 19:49 10/28/18 19:49 10/28/18 19:49 10/28/18 19:49 Discharge - Discharge Clinical Impression: Shoulder pain Qualifiers: Chronicity: acute Laterality: left Qualified Code(s): M25.512 - Pain in left shoulder Condition: Good Disposition: HOME, SELF-CARE Additional Instructions: Shoulder Injury You have injured your shoulder. This usually results from stretching or tearing of the tendons during trauma. Time and protection are required in order to heal properly. Many injuries are quite disabling, and should be taken seriously. Initial treatment includes cold packs and a sling to rest the shoulder. He should take Motrin 600 mg every 6 hours for the next several days with food or water and Tylenol 1000 mg every 6 hours as well. If a re-examination was recommended, it is important that you follow up as instructed. Some shoulder injuries (such as partial tear of the rotator cuff) are only suspected after you've failed to improve. Call us if there's severe pain, numbness, or loss of function. Referrals: JELANI PITTS MD [ACTIVE STAFF] - Follow up as needed
[2018-10-28] MEDS ORDERED: IBUPROFEN 600 MG TABLET PO ONE (23:03)
[2018-10-28] MEDS ORDERED: ACETAMINOPHEN 325 MG TABLET PO ONE (23:03)
[2018-10-28 23:22] VITALS: BP 122/74
== END 2018-10-28 23:21 | disposition home or self-care (01) ==
LOC: ER 19:39
DX: M25.512 Pain in left shoulder (principal); X50.9XXA Other and unspecified overexertion or strenuous movements or postures, initial encounter; Y93.F2 Activity, caregiving, lifting; Y92.129 Unspecified place in nursing home as the place of occurrence of the external cause; Y99.0 Civilian activity done for income or pay
CPT/HCPCS: 99283

== ENCOUNTER 2019-08-25 21:57 | Emergency (ER) | payer BC, OTHER ==
[2019-08-25 23:30] LABS: A TYPE INFLUENZA AG NEGATIVE (NEGATIVE); B INFLUENZA AG NEGATIVE (NEGATIVE)
== END 2019-08-26 02:36 | disposition left against medical advice (07) ==
LOC: ER 21:57
DX: Z53.21 Procedure and treatment not carried out due to patient leaving prior to being seen by health care provider (principal)
CPT/HCPCS: 87804

== ENCOUNTER 2019-08-27 13:32 | Emergency (ER) | payer BC, MEDICAID ==
[2019-08-27 13:43] VITALS: BP 128/68
--- NOTE | 2019-08-27 13:45 | ER Document Report ---
ED Medical Screen (RME) - General Chief Complaint: Cold Symptoms Stated Complaint: COLD SYMPTOMS Time Seen by Provider: 08/27/19 13:40 Mode of Arrival: Ambulatory Information source: Patient Notes: 29-year-old female presents to ED for complaint of cold cough is concerned what to take due to the fact that she is . She is alert oriented respirations regular nonlabored speaking in full sentences. She states she has been taken Mucinex and Benadryl but her family member told her that Benadryl was not safe in . I have informed her that Benadryl and Claritin are safe in Mucinex as a category C in . Patient states she is 23 weeks her first child. She states she is been doing her care in [place] she just moved back to [place]. States she is read on her paperwork but has not heard back from Medicaid yet. I have greeted and performed a rapid initial assessment of this patient. A comprehensive ED assessment and evaluation of the patient, analysis of test results and completion of medical decision making process will be conducted by an additional ED providers. TRAVEL OUTSIDE OF THE [place] IN LAST 30 DAYS: No - Related Data Allergies/Adverse Reactions: No Known Allergies Allergy (Verified 07/12/18 06:25) Past Medical History Endocrine Medical History: Denies: Hx Diabetes Mellitus Type 1, Hx Diabetes Mellitus Type 2 Renal/ Medical History: Denies: Hx Peritoneal Dialysis Musculoskeltal Medical History: Reports Hx Arthritis - right hip - Immunizations Hx Diphtheria, Pertussis, Tetanus Vaccination: Yes
--- NOTE | 2019-08-27 14:27 | ER Document Report ---
HPI - HPI Time Seen by Provider: 08/27/19 13:40 Pain Level: 1 Context: Patient is a 29-year-old female who presents to the emergency department with a chief complaint of upper respiratory infection. Patient reports she has had cough and congestion for 2 days. Patient reports she is 23 weeks and the reason why she came to the emergency department is because she does not know what medication she can take. Patient reports she has been taking Benadryl and Mucinex. Patient states she has had intermittent runny nose and congestion. Patient reports she has not taken any Tylenol. Patient denies any past medical history. 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 Patient denies abdominal pain. - REPRODUCTIVE Reproductive: REPORTS: : Past Medical History - General Information source: Patient - Social History Smoking Status: Never Smoker Chew tobacco use (# tins/day): No Frequency of alcohol use: None Drug Abuse: None Lives with: Family Family History: Reviewed & Not Pertinent Patient has suicidal ideation: No Patient has homicidal ideation: No - Past Medical History Cardiac Medical History: Reports: None Pulmonary Medical History: Reports: None EENT Medical History: Reports: None Neurological Medical History: Reports: None Endocrine Medical History: Reports: None. Denies: Hx Diabetes Mellitus Type 1, Hx Diabetes Mellitus Type 2 Renal/ Medical History: Reports: None. Denies: Hx Peritoneal Dialysis Malignancy Medical History: Reports: None GI Medical History: Reports: None Musculoskeletal Medical History: Reports Hx Arthritis - right hip Skin Medical History: Reports None Psychiatric Medical History: Reports: None Traumatic Medical History: Reports: None Infectious Medical History: Reports: None Surgical Hx: Negative - Immunizations Hx Diphtheria, Pertussis, Tetanus Vaccination: Yes Vertical Provider Document - CONSTITUTIONAL Agree With Documented VS: Yes Exam Limitations: No Limitations General Appearance: No Apparent Distress - INFECTION CONTROL TRAVEL OUTSIDE OF THE [place] IN LAST 30 DAYS: No - HEENT HEENT: Atraumatic, Normal ENT Exam, Normocephalic, PERRLA Notes: Patient has erythematous and edematous bilateral turbinates. Clear rhinorrhea. No sinus tenderness. - NECK Neck: Normal Inspection - RESPIRATORY Respiratory: Breath Sounds Normal, No Respiratory Distress - CARDIOVASCULAR Cardiovascular: Regular Rate, Regular Rhythm - GI/ABDOMEN Gastrointestinal: Abdomen Soft, Abdomen Non-Tender Notes: - NEURO Level of Consciousness: Awake, Alert, Appropriate - DERM Integumentary: Warm, Dry, No Rash Course - Re-evaluation Re-evalutation: 08/27/19 15:12 I did educate the patient that her symptoms are most likely consistent with an upper respiratory infection due to a virus. Patient states she has not been running a fever. Patient denies sick contacts. I did inform her to use saline nasal flushes. I did inform the patient that prior to buying any medication added the pharmacy to verify that it is safe to take when with the local pharmacist. Patient verbalized understanding. I did inform the patient she can take Tylenol. - Vital Signs Vital signs: Temp Pulse Resp BP Pulse Ox 98.2 F 103 H 18 128/68 H 100 08/27/19 13:42 08/27/19 13:42 08/27/19 13:42 08/27/19 13:42 08/27/19 13:42 Discharge - Discharge Clinical Impression: Cough URI (upper respiratory infection) Qualifiers: URI type: unspecified viral URI Qualified Code(s): J06.9 - Acute upper respiratory infection, unspecified Condition: Stable Disposition: HOME, SELF-CARE Additional Instructions: Today you are seen the emergency department for an upper respiratory infection. Your symptoms most likely due to an virus. This can last 10 to 14 days. This usually entails nasal congestion, drainage and a sore throat with cough. This is highly contagious. Since you are you are limited as to what you can take. Please use Tylenol as needed for pain. Please try nasal saline flushes to rinse the sinuses. You can buy a Marcia pot at the pharmacy. You can use: Plain robitussin *Always consult a pharmacist in regards to medications and . *No decongestants! while . UPPER RESPIRATORY ILLNESS: You have a viral infection of the respiratory passages -- a "cold." This common infection causes nasal congestion, drainage, and often sore throat and cough. It is highly contagious. The disease usually lasts about 10 to 14 days. There is no "cure" for the viral infection -- it must run its course. If there is a complication, such as bacterial infection in the nose, sinuses, middle ear, or bronchial tubes, antibiotics may be required. The antibiotics won't affect the virus. Drink plenty of fluids. A humidifier may help. Use acetaminophen or ibuprofen for fever or aches. See the doctor if fever persists over two days, if there is any significant worsening of your symptoms, or if you simply fail to improve as expected. USE OF ACETAMINOPHEN (Tylenol): Acetaminophen may be taken for pain relief or fever control. It's much safer than aspirin, offering a wider range of "safe" dosages. It is safe during . Some brand names are Tylenol, Panadol, Datril, Anacin 3, Tempra, and Liquiprin. Acetaminophen can be repeated every four hours. The following are maximum recommended dosages: >89 pounds or adults 650 mg to 900 mg Acetaminophen can be repeated every four hours. Maximum dose not to exceed 4000 mg a day. SMOKING: If you smoke, you should stop smoking. The tar and chemicals in cigarette smoke are harmful. Smoking has been shown to cause: emphysema chronic bronchitis lung cancer mouth and throat cancer stomach and pancreas cancer premature aging defects In addition, smoking increases ear and lung infections in children of smokers. FOLLOW-UP CARE: If you have been referred to a physician for follow-up care, call the physicians office for an appointment as you were instructed or within the next two days. If you experience worsening or a significant change in your symptoms, notify the physician immediately or return to the Emergency Department at any time for re-evaluation. Forms: Return to Work
== END 2019-08-27 14:35 | disposition home or self-care (01) ==
LOC: ER 13:32
DX: J06.9 Acute upper respiratory infection, unspecified (principal)

== ENCOUNTER 2019-09-09 06:37 | Outpatient (CLI) | payer MEDICAID ==
[2019-09-09 07:40] LABS: APPEARANCE,URINE CLEAR; BILIRUBIN,URINE NEGATIVE (NEGATIVE); COLOR,URINE STRAW; GLUCOSE, URINE NEGATIVE (NEGATIVE); KETONES,URINE TRACE mg/dL (NEGATIVE); LEUKOCYTE ESTERASE,URINE NEGATIVE (NEGATIVE); NITRITE,URINE NEGATIVE (NEGATIVE); PROTEIN,URINE NEGATIVE (NEGATIVE); URINE SPECIFIC GRAVITY 1.008; UROBILINOGEN,URINE NEGATIVE mg/dL (<2.0)
[2019-09-09 07:59] LABS: URINE AMPHETAMINES SCREEN NEGATIVE; URINE BARBITURATES SCREEN NEGATIVE; URINE COCAINE SCREEN NEGATIVE; URINE MARIJUANA (THC) SCREEN NEGATIVE; URINE METHADONE SCREEN NEGATIVE; URINE PHENCYCLIDINE SCREEN NEGATIVE
[2019-09-09 08:03] LABS: URINE BENZODIAZEPINES SCREEN NEGATIVE
--- NOTE | 2019-09-09 08:48 | RADIOLOGY REPORT (SQ) ---
EXAM DESCRIPTION: U/S OB 14+ TRNABD 1GES W/O DOP COMPLETED DATE/TIME: 09/09/2019 8:26 am REASON FOR STUDY: fall at 26.1 COMPARISON: None. TECHNIQUE: Static and Dynamic grayscale imaging performed of gravid uterus using transabdominal appr oac. Additional selected color Doppler and spectral images recorded. All stored on PACS. LIMITATIONS: Limited due to gestational age. FINDINGS: FETUSES SEEN:1 EGA: 25 weeks 5 days Calculated using BPD,FL,HC,AC documented on images. No discrepancy with clinica l dates. GARTH: 12/18/2019 EFW: 891 grams PERCENTILE: 46% CELIA: 10.1 cm PLACENTA: Fundal. PRESENTATION: Breech. ANATOMY: HEART RATE: 155 beats per minute. FOUR CHAMBER HEART: Visualized. THREE VESSEL CORD: Yes. CORD INSERTION: Visualized. KIDNEYS AND BLADDER: Visualized. Appear normal. STOMACH: Visualized. Appears normal. SPINE: Suboptimal visualization. BRAIN AND LATERAL VENTRICLES: Visualized. Appear normal. OTHER: No other significant finding. MATERNAL ADNEXA: Maternal ovaries not visualized. CERVICAL LENGTH: Limited visualization. 3.8 cm Closed. OTHER: No other significant finding. IMPRESSION: LIVING INTRAUTERINE . ESTIMATED GESTATIONAL AGE: 25 weeks 5 days NO VISUALIZED ANOMALIES. Trimester of : Second trimester - 13 weeks 1 day to 27 weeks 6 days. TECHNICAL DOCUMENTATION: JOB ID: [id number] [employer]- All Rights Reserved Reading location - IP/workstation name: [email or web address]
--- NOTE | 2019-09-09 09:18 | PDOC PROGRESS REPORT ---
Subjective Progress Note for:: 09/09/19 Subjective:: states she fell from shower onto toilet, hit right side of belly at 0520. denies contractions. states baby is moving normally Reason For Visit: LABOR CHECK Physical Exam - Physical Exam Vital Signs: Intake & Output 09/08/19 09/09/19 09/10/19 06:59 06:59 06:59 Weight 88.8 kg GI/Abdominal exam: PRESENT: soft, other - small scratch on right side of abdomen. ABSENT: distended, firm, rebound, rigid, tenderness Neurological exam: PRESENT: alert, awake - appears comfortable Psychiatric exam: PRESENT: appropriate affect Result Laboratory Results: 09/09/19 06:55 Urine Color STRAW Urine Appearance CLEAR Urine pH 7.0 Ur Specific [place] 1.008 Urine Protein NEGATIVE Urine Glucose (UA) NEGATIVE Urine Ketones TRACE H Urine Blood NEGATIVE Urine Nitrite NEGATIVE Ur Leukocyte Esterase NEGATIVE Urine WBC (Auto) 0 Urine RBC (Auto) 1 Impressions: Obstetrics Ultrasound 09/09/19 00:00 IMPRESSION: LIVING INTRAUTERINE . ESTIMATED GESTATIONAL AGE: 25 weeks 5 days NO VISUALIZED ANOMALIES. Trimester of : Second trimester - 13 weeks 1 day to 27 weeks 6 days. Assessment & Plan - Diagnosis (1) Qualifiers: Weeks of gestation: 26 weeks Qualified Code(s): Z3A.26 - 26 weeks gestation of Is this a current diagnosis for this admission?: Yes (2) Fall Qualifiers: Encounter type: initial encounter Qualified Code(s): W19.XXXA - Unspecified fall, initial encounter Is this a current diagnosis for this admission?: Yes - Time Time Spent with patient: Less than 15 minutes Anticipated discharge: Home - Plan Summary Plan Summary: awaiting blood type, anticipate discharge within next 1h
== END 2019-09-09 09:51 | disposition home or self-care (01) ==
LOC: LC 06:37
PROVIDERS: ATTEND Obstetrics & Gynecology
PROC: 4A1HXCZ Monitoring of Products of Conception, Cardiac Rate, External Approach (ICD-10-PCS; principal; 2019-09-09)
DX: O9A.212 Injury, poisoning and certain other consequences of external causes complicating pregnancy, second trimester (principal); S30.1XXA Contusion of abdominal wall, initial encounter; W19.XXXA Unspecified fall, initial encounter; Y92.002 Bathroom of unspecified non-institutional (private) residence as the place of occurrence of the external cause; Z3A.26 26 weeks gestation of pregnancy
CPT/HCPCS: 36415; 76805; 80307; 81001; 86850; 86900; 86901

== ENCOUNTER 2019-10-14 22:02 | Observation (INO) | payer MEDICAID ==
[2019-10-14 23:28] LABS: APPEARANCE,URINE CLEAR; BILIRUBIN,URINE NEGATIVE (NEGATIVE); COLOR,URINE YELLOW; GLUCOSE, URINE 50 mg/dL (NEGATIVE); KETONES,URINE TRACE mg/dL (NEGATIVE); LEUKOCYTE ESTERASE,URINE SMALL (NEGATIVE); NITRITE,URINE NEGATIVE (NEGATIVE); PROTEIN,URINE NEGATIVE (NEGATIVE); URINE SPECIFIC GRAVITY 1.015; UROBILINOGEN,URINE NEGATIVE mg/dL (<2.0)
[2019-10-14 23:52] LABS: URINE AMPHETAMINES SCREEN NEGATIVE; URINE BARBITURATES SCREEN NEGATIVE; URINE BENZODIAZEPINES SCREEN NEGATIVE; URINE COCAINE SCREEN NEGATIVE; URINE MARIJUANA (THC) SCREEN NEGATIVE; URINE METHADONE SCREEN NEGATIVE; URINE PHENCYCLIDINE SCREEN NEGATIVE
[2019-10-15] MEDS ORDERED: BETAMET ACET/BETAMET NA INJ 6 MG/1 ML IM ONE (00:23)
[2019-10-15] MEDS ORDERED: BETAMET ACET/BETAMET NA INJ 6 MG/1 ML ONE (00:23)
[2019-10-15 01:27] LABS: ABSOLUTE BASOPHILS # (AUTO) 0.1 10^3/uL (0.0-0.2); ABSOLUTE EOSINOPHILS # (AUTO) 0.1 10^3/uL (0.0-0.6); ABSOLUTE LYMPHOCYTES (AUTO) 2.3 10^3/uL (0.5-4.7); ABSOLUTE NEUT (AUTO) 10.1 10^3/uL (1.7-8.2); BASOPHILS % (AUTO) 0.5 % (0-2); EOSINOPHILS % (AUTO) 0.5 % (0-6); HEMATOCRIT 38.8 % (36.0-47.0); HEMOGLOBIN 12.8 g/dL (12.0-15.5); MEAN CORPUSCULAR HEMOGLOBIN 28.1 pg (27.0-33.4); MEAN CORPUSCULAR HGB CONC 33.1 g/dL (32.0-36.0); MEAN CORPUSCULAR VOLUME 85 fl (80-97); MONOCYTES % (AUTO) 7.6 % (3-13); PLATELET COUNT 270 10^3/uL (150-450); RED BLOOD COUNT 4.56 10^6/uL (3.72-5.28); RED CELL DISTRIBUTION WIDTH 15.6 % (11.5-14.0); SEGMENTED NEUTROPHILS % (AUTO) 74.4 % (42-78); TOTAL CELLS COUNTED % (AUTO) 100 %; WHITE BLOOD COUNT 13.5 10^3/uL (4.0-10.5)
--- NOTE | 2019-10-15 01:35 | RADIOLOGY REPORT (SQ) ---
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 TECHNIQUE: Grayscale and color Doppler ultrasound images of the pelvis were obtained. FINDINGS: Biophysical profile is as follows: Movement - 2 Tone - 2 Breathing - 2 Fluid - 2 Multiple heart rate measurements were obtained as follows: 137 bpm, 140, 116, 77, 126, 135, 144. Amniotic fluid index is 10.6 cm. Placenta is posterior. Fetus is in breech orientation. Cervix is 3.5 cm in length. IMPRESSION: 1. Single live intrauterine with normal biophysical profile. 2. Multiple heart rates measured, ranging from 77-144 bpm.
--- NOTE | 2019-10-15 01:35 | RADIOLOGY REPORT (SQ) ---
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 TECHNIQUE: Grayscale and color Doppler ultrasound images of the pelvis were obtained. FINDINGS: Biophysical profile is as follows: Movement - 2 Tone - 2 Breathing - 2 Fluid - 2 Multiple heart rate measurements were obtained as follows: 137 bpm, 140, 116, 77, 126, 135, 144. Amniotic fluid index is 10.6 cm. Placenta is posterior. Fetus is in breech orientation. Cervix is 3.5 cm in length. IMPRESSION: 1. Single live intrauterine with normal biophysical profile. 2. Multiple heart rates measured, ranging from 77-144 bpm.
[2019-10-15 01:38] LABS: BLOOD UREA NITROGEN 8 mg/dL (7-20); CALCIUM 9.5 mg/dL (8.4-10.2); GLUCOSE 86 mg/dL (75-110)
[2019-10-15 01:39] LABS: ALBUMIN 3.6 g/dL (3.5-5.0); ALKALINE PHOSPHATASE 91 U/L (38-126); ANION GAP 9 (5-19); ASPARTATE AMINO TRANSFERASE 25 U/L (14-36); BILIRUBIN,DIRECT 0.2 mg/dL (0.0-0.4); BILIRUBIN,TOTAL 0.5 mg/dL (0.2-1.3); CARBON DIOXIDE 24 mmol/L (22-30); CHLORIDE 106 mmol/L (98-107); POTASSIUM 3.9 mmol/L (3.6-5.0); TOTAL PROTEIN 6.8 g/dL (6.3-8.2)
[2019-10-15] MEDS ORDERED: RINGERS SOLUTION,LACTATED 1,000 ML IV PRN (07:36)
--- NOTE | 2019-10-15 08:09 | Admission Physical ---
Datetime Report Generated by CPN: 10/15/2019 08:08 CURRENT ADMISSION Chief Complaint: Other Chief Complaint Other: arrhythmia Indication for Induction: Not Applicable Admit Impression : , Intrauterine ; No Active Labor; Observation/Evaluation Admit Plan: Observation/Evaluation ALLERGIES Medication Allergies: No Medication Allergies: No Known Allergies (07/12/2018) Latex: No Latex Allergies Food Allergies: none Environmental Allergies: none OBSTETRICAL HISTORY EDC: 12/15/2019 00:00 : 1 Para: 0 Term: 0 : 0 SAB: 0 IAB: 0 Livin Gestational Diabetes: No Rh Sensitization: No Incompetent Cervix: No FUENTES: No Infertility: No ART Treatment: No Uterine Anomaly: No IUGR: No Hx Previous C/S: No Macrosomia: No Hx Loss/Stillborn: No PIH: No Hx : No Placenta Previa/Abruption: No Depression/PP Depression: No PTL/PROM: No Post Hemorrhage: No Current Procedures: Ultrasound Obstetrical History Comments: G1: current, no complications per patient SEE RECORDS Alcohol: No Marijuana : No Cocaine: No Other Illicit Drugs: No Cigarettes: Never Smoker. 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 Heart Disease: No Hosp/Surgery: No Autoimmune Disorder: No Anesthetic Complications: No Kidney Disease: No Abnormal Pap Smear: No Neuro/Epilepsy: No Psychiatric Disorders: No Other Medical Diseases: No Hepatitis/Liver Disease: No Significant Family History: No Varicosities/Phlebitis: No Trauma/Violence : Yes Thyroid Dysfunction: No Medical History Comments: Fall at 26.1 INFECTIOUS HISTORY Gonorrhea: No Genital Herpes: No Chlamydia: No Tuberculosis: No Syphilis: No Hepatitis: No HIV/AIDS Exposure: No Rash or Viral Illness: No HPV: No PHYSICAL EXAM General: Normal HEENT: Normal Neurologic: Normal Thyroid: Deferred Heart: Normal Lungs: Normal Breast: Deferred Back: Normal Abdomen: Normal Genitourinary Exam: Normal Extremities: Normal DTRs: Normal Pelvic Type: Adequate Vital Signs: Reviewed VAGINAL EXAM Dilatation: 0 MEMBRANES Membranes: Intact FETUS A EGA: 31.2 Monitoring: External US FHR- Baseline: 140 Accelerations: 15X15 Decelerations: None FHR Category: Category II Presentation: Breech Admit Comment: 29yo at 31.2ega presents for back pain. She began her in [place] at [facility] and is now at [facility]. She has not been seen at the [facility] yet. Anatomy US normal. She was placed on the monitor up on labor and delivery and noted to have FHR in 130-140s then down to the 80s. Bedside US appears to be arrhythmia. Formal US ordered. BPP 06/02. h/o chlamydia in the . TSH and CBC ordered. Plan to observe since baby and mom are stable and then in am call MFM to discuss plan of care. PLANS FOR LABOR AND DELIVERY Labor and Delivery: None Feeding Preference: Breast Benefit of Breast Feed Discussed: Yes INFORMED CONSENT Informed Consent Obtained: Risks, Benefits and Alternatives Discussed Signature: with User ID: [email or web address]
[2019-10-15] MEDS ORDERED: NALBUPHINE HCL INJ 10 MG/1 ML AMPULE INJ ONE (08:42)
--- NOTE | 2019-10-15 10:19 | PDOC DISCHARGE SUMMARY ---
Final Diagnosis Discharge Date: 10/15/19 Discharge Data - Discharge Medication Home Medications: Prenat 115/Iron Fum/Folic/Dss [ 19 Tablet] 1 each PO DAILY 09/09/19 Reason(s) for Admission: Other Admission Note: pt admitted for observation secondary to arrhythmia - Diagnosis Test Laboratory: 10/14/19 10/15/19 22:40 01:08 RBC 4.56 Hgb 12.8 Hct 38.8 Urine Opiates Screen NEGATIVE - Discharge information/Instructions Discharge Activity: Other Discharge Diet: As Tolerated Disposition: HOME, SELF-CARE Follow up with: [facility] in: 1
== END 2019-10-15 10:30 | disposition home or self-care (01) ==
LOC: LC 22:02 → LR 10-15
PROVIDERS: ADMIT Student in an Organized Health Care Education/Training Program; ATTEND Student in an Organized Health Care Education/Training Program
DX: O99.413 Diseases of the circulatory system complicating pregnancy, third trimester (principal); O99.89 Other specified diseases and conditions complicating pregnancy, childbirth and the puerperium; M54.9 Dorsalgia, unspecified; Z3A.31 31 weeks gestation of pregnancy; O32.1XX0 Maternal care for breech presentation, not applicable or unspecified; Z91.81 History of falling; Z86.19 Personal history of other infectious and parasitic diseases
CPT/HCPCS: 36415; 84443; 85025; 80053; 81001; 80307; 76815; 76819; G0378; J0702

== ENCOUNTER 2019-11-03 14:53 | Outpatient (CLI) | payer MEDICAID ==
[2019-11-03 15:37] LABS: APPEARANCE,URINE CLEAR; BILIRUBIN,URINE NEGATIVE (NEGATIVE); COLOR,URINE STRAW; GLUCOSE, URINE NEGATIVE (NEGATIVE); KETONES,URINE NEGATIVE (NEGATIVE); LEUKOCYTE ESTERASE,URINE MODERATE (NEGATIVE); NITRITE,URINE NEGATIVE (NEGATIVE); PROTEIN,URINE NEGATIVE (NEGATIVE); URINE SPECIFIC GRAVITY 1.008; UROBILINOGEN,URINE NEGATIVE mg/dL (<2.0)
[2019-11-03 15:49] LABS: URINE AMPHETAMINES SCREEN NEGATIVE; URINE BARBITURATES SCREEN NEGATIVE; URINE BENZODIAZEPINES SCREEN NEGATIVE; URINE COCAINE SCREEN NEGATIVE; URINE MARIJUANA (THC) SCREEN NEGATIVE; URINE METHADONE SCREEN NEGATIVE; URINE PHENCYCLIDINE SCREEN NEGATIVE
--- NOTE | 2019-11-03 18:21 | RADIOLOGY REPORT (SQ) ---
EXAM DESCRIPTION: U/S PROFILE W/O STRESS COMPLETED DATE/TIME: 11/03/2019 4:33 pm REASON FOR STUDY: BPP irregular heart beat of baby COMPARISON: 10/15/2019 TECHNIQUE: Limited abrams-scale realtime and static images of the fetus to measure specified parameter s. LIMITATIONS: None. FINDINGS: HEART RATE: 124-128 beats per minute. CELIA: 11.8 cm cm. BREATHING MOVEMENT: 2 points. MOVEMENT: 2 points. POSTURE AND TONE: 2 points. QUALITATIVE CELIA: 2 points. OTHER: No other significant finding. IMPRESSION: BIOPHYSICAL PROFILE: 06/02. Trimester of : Third - 28 weeks to delivery COMMENT: BREATHING MOVEMENTS: 2 POINTS: PRESENT 0 POINTS: ABSENT MOTION: 2 POINTS: PRESENT 0 POINTS: ABSENT TONE: 2 POINTS: PRESENT 0 POINTS: ABSENT AMNIOTIC FLUID VOLUME: 2 POINTS: LARGEST POCKET GREATER THAN 2 CM DEPTH. 0 POINTS: NO POCKET OF 2 CM. TECHNICAL DOCUMENTATION: JOB ID: [id number] [employer]- All Rights Reserved Reading location - IP/workstation name: [email or web address]
== END 2019-11-03 16:42 | disposition home or self-care (01) ==
LOC: LC 14:53
PROVIDERS: ATTEND Obstetrics & Gynecology Gynecology
PROC: 4A1HXCZ Monitoring of Products of Conception, Cardiac Rate, External Approach (ICD-10-PCS; principal; 2019-11-03)
DX: O36.8330 Maternal care for abnormalities of the fetal heart rate or rhythm, third trimester, not applicable or unspecified (principal); Z3A.34 34 weeks gestation of pregnancy
CPT/HCPCS: 76819; 80307; 81001

== ENCOUNTER 2019-11-21 13:24 | Outpatient (CLI) | payer MEDICAID ==
[2019-11-21] MEDS ORDERED: RINGERS SOLUTION,LACTATED 1,000 ML IV ONE (14:07)
[2019-11-21 14:24] LABS: APPEARANCE,URINE SLIGHTLY-CLOUDY; BILIRUBIN,URINE NEGATIVE (NEGATIVE); COLOR,URINE YELLOW; GLUCOSE, URINE 50 mg/dL (NEGATIVE); KETONES,URINE TRACE mg/dL (NEGATIVE); LEUKOCYTE ESTERASE,URINE LARGE (NEGATIVE); NITRITE,URINE NEGATIVE (NEGATIVE); PROTEIN,URINE NEGATIVE (NEGATIVE); URINE SPECIFIC GRAVITY 1.014; UROBILINOGEN,URINE NEGATIVE mg/dL (<2.0)
[2019-11-21 14:58] LABS: URINE AMPHETAMINES SCREEN NEGATIVE; URINE BARBITURATES SCREEN NEGATIVE; URINE BENZODIAZEPINES SCREEN NEGATIVE; URINE COCAINE SCREEN NEGATIVE; URINE MARIJUANA (THC) SCREEN NEGATIVE; URINE METHADONE SCREEN NEGATIVE; URINE PHENCYCLIDINE SCREEN NEGATIVE
--- NOTE | 2019-11-21 16:02 | RADIOLOGY REPORT (SQ) ---
EXAM DESCRIPTION: U/S PROFILE W/O STRESS COMPLETED DATE/TIME: 11/21/2019 3:49 pm REASON FOR STUDY: decels during NST COMPARISON: 11/03/2019 TECHNIQUE: Limited abrams-scale realtime and static images of the fetus to measure specified parameter s. LIMITATIONS: None. FINDINGS: HEART RATE: 127 beats per minute. LVP: 2.9 x 2.9 cm. BREATHING MOVEMENT: 2 points. MOVEMENT: 2 points. POSTURE AND TONE: 0 points. QUALITATIVE CELIA: 2 points. OTHER: Fetus is in breech presentation. IMPRESSION: BIOPHYSICAL PROFILE: 04/02. Trimester of : Third - 28 weeks to delivery COMMENT: BREATHING MOVEMENTS: 2 POINTS: PRESENT 0 POINTS: ABSENT MOTION: 2 POINTS: PRESENT 0 POINTS: ABSENT TONE: 2 POINTS: PRESENT 0 POINTS: ABSENT AMNIOTIC FLUID VOLUME: 2 POINTS: LARGEST POCKET GREATER THAN 2 CM DEPTH. 0 POINTS: NO POCKET OF 2 CM. TECHNICAL DOCUMENTATION: JOB ID: [id number] [employer]- All Rights Reserved Reading location - IP/workstation name: [email or web address]
== END 2019-11-21 15:54 | disposition home or self-care (01) ==
LOC: LC 13:24
PROVIDERS: ATTEND Obstetrics & Gynecology
PROC: 4A1HXCZ Monitoring of Products of Conception, Cardiac Rate, External Approach (ICD-10-PCS; principal; 2019-11-21)
DX: O36.8330 Maternal care for abnormalities of the fetal heart rate or rhythm, third trimester, not applicable or unspecified (principal); Z3A.36 36 weeks gestation of pregnancy
CPT/HCPCS: 59025; 76819; 80307; 81001